=== PATIENT | female | born 1975 | race Caucasian/White ===

== ENCOUNTER 2017-12-21 12:00 | Emergency (ER) | payer OTHER ==
[~2017-12-21] VITALS: Ht 170.2 cm; Wt 51.3 kg
--- OUTSIDE RECORDS SUMMARY | ~2017-12-21 | XMS | Clinical Summary ---
Demographics + + + | Address | [address] | | | [place] [address] | + + + | Home Phone | | + + + | Preferred Language | Unknown | + + + | Marital Status | Single | + + + | Yarsani Affiliation | Unknown | + + + | Race | White | + + + | Ethnic Group | Not or | + + + Author + + + | Author | [facility] | + + + | Organization | [facility] | + + + | Address | Unknown | + + + | Phone | Unavailable | + + + Support + + +---------+ + | Name | Relationship | Address | Phone | + + +---------+ + | ADAM MARIA | ECON | Unknown | | + + +---------+ + Care Team Providers + +------+ + | Care Drilling Machine Operator Name | Role | Phone | + +------+ + PP | Unavailable | + +------+ + Source Comments AELM is fully live on both [facility] Ambulatory and [facility] InPatient.[facility]ly [facility] & [facility] Allergies + + + + + + | Active Allergy | Reactions | Severity | Noted | Comments | | | | | Date | | + + + + + + | Lactose | | Low | 08/30/20 | | | | | | 11 | | + + + + + + Current Medications + + +-------+---------+------+------+-------+ | Prescription | Sig. | Disp. | Refills | Star | End | Statu | | | | | | t | Date | s | | | | | | Date | | | + + +-------+---------+------+------+-------+ | ascorbic acid | Take 500 mg by mouth | | | | | Activ | | (VITAMIN C) 500 mg | once daily. | | | | | e | | Oral Tablet | | | | | | | + + +-------+---------+------+------+-------+ | MULTIVITAMINS WITH | Take 1 Tab by mouth | | | | | Activ | | FLUORIDE | once daily. | | | | | e | | (MULTI-VITAMIN ORAL) | | | | | | | + + +-------+---------+------+------+-------+ | OMEPRAZOLE | Take by mouth once | | | | | Activ | | MAGNESIUM (PRILOSEC | daily. | | | | | e | | OTC ORAL) | | | | | | | + + +-------+---------+------+------+-------+ | POLYETHYLENE | Take by mouth as | | | | | Activ | | GLYCOL 3350 (MIRALAX | needed. | | | | | e | | ORAL) | | | | | | | + + +-------+---------+------+------+-------+ Active Problems Not on file Social History + +-------+ +--------+------+ | Tobacco Use | Types | Packs/Day | Years | Date | | | | | Used | | + +-------+ +--------+------+ | Former Smoker | | | 2 | | + +-------+ +--------+------+ + + +---------+ + | Alcohol Use | Drinks/We | oz/Week | Comments | | | ek | | | + + +---------+ + | No | | | | + + +---------+ + + + + | Sex Assigned at | Date Recorded | | | | + + + | Not on file | | + + + Last Filed Vital Signs + + + + | Vital Sign | Reading | Time Taken | + + + + | Blood Pressure | 103/53 | 04/23/2013 1:38 PM PDT | + + + + | Pulse | 81 | 04/23/2013 1:38 PM PDT | + + + + | Temperature | 36.9 C (98.4 F) | 04/23/2013 1:38 PM PDT | + + + + | Respiratory Rate | 16 | 04/23/2013 1:38 PM PDT | + + + + | Oxygen Saturation | - | - | + + + + | Inhaled Oxygen | - | - | | Concentration | | | + + + + | Weight | 50 kg (110 lb 3.2 | 04/23/2013 1:38 PM PDT | | | oz) | | + + + + | Height | 171.5 cm (5' 7.5") | 04/23/2013 1:38 PM PDT | + + + + | Body Mass Index | 17.01 | 04/23/2013 1:38 PM PDT | + + + + Plan of Treatment + + + + + | Health Maintenance | Due Date | Last Done | Comments | + + + + + | INFLUENZA VACCINE | | | | | (FLU SHOT) | 7 | | | + + + + + Results Not on filefrom Last 3 Months
[~2017-12-21 12:00] MED LIST: CYCLOBENZAPRINE10 MG PO; DAILY VALUE1 EACH PO; FIORICET 50-301 EACH PO; IBUPROFEN600 MG PO; NORCO 5-325 TA1 EACH PO; VISTARIL25 MG PO; ZOFRAN ODT4 MG PO
[2017-12-21] MEDS ORDERED: ONDANSETRON ODT8 MG PO (18:06)
[2017-12-21] MEDS ORDERED: HYDROXYZINE HCL25 MG PO (18:06)
[2018-02-12] MEDS ORDERED: FOLIC ACID1 MG PO (11:16)
[2018-02-12] MEDS ORDERED: MULTIVITAMINS1 EAC8 PO (11:16)
[2018-02-12] MEDS ORDERED: VITAMIN D-32000 UNI1 PO (11:16)
[2018-02-12] MEDS ORDERED: VITAMIN C1000 MG PO (11:17)
== END 2017-12-21 19:20 | disposition home or self-care (01) ==
LOC: ED 12:00
DX: F41.9 Anxiety disorder, unspecified (principal); F17.200 Nicotine dependence, unspecified, uncomplicated
CPT/HCPCS: 80053; 81001; 83690; 84703; 85025; 96374; 99284; J2405; J7030; Q0177

== ENCOUNTER 2018-02-13 06:25 | Day surgery (SDC) | payer OTHER ==
[~2018-02-13] VITALS: Ht 170.2 cm; Wt 51.3 kg
[~2018-02-13 06:25] MED LIST changes: +FOLIC ACID1 MG PO; +HYDROXYZINE HCL25 MG PO; +MULTIVITAMINS1 EAC8 PO; +ONDANSETRON ODT8 MG PO; +VITAMIN C1000 MG PO; +VITAMIN D-32000 UNI1 PO
--- NOTE | 2018-02-13 09:35 | NUR ---
PT RESTING IN BED, INVITED ME IN. SHE IS ALERT AND ORIENTED. SHE SEEMED PLEASANT, AND EXPRESSED SEVERAL TIMES HER DESIRE TO HAVE THE SCREWS IN HER FINGER REMOVED. APPARENTLY THEY HAVE BEEN CAUSING HER QUITE A BIT OF PAIN AND DISCOMFORT. SHE SEEMED PREPARED, HAD FEW QUESTIONS. STAFF IS TO CALL [facility] FOR PT WHEN SHE IS DC'D. EXTENDED A BLESSING, WILL FOLLOW NEEDED
--- NOTE | 2018-02-13 10:11 | NUR ---
02/13/18 Mayank1 Isis Bettencourt 1002-PATIENT ARRIVED TO PACU AWAKE ON RA O2 SAT 100% DENIES PAIN OR NAUSEA. DRESSING TO LEFT RING FINGER CDI. GLUCOSE CHECKED IN OR 103. RR EVEN. SR. 1010-PATIENT AWAKE DENIES PAIN OR NAUSEA. NUMBNESS TO LEFT FINGER.
[2018-02-13] MEDS ORDERED: ULTRAM50 MG PO (10:30)
--- NOTE | 2018-02-15 08:48 | OR ---
[facility] [address], [place] [address] Signed DATE OF OPERATION: 02/13/2018 SURGEON: Keith Arevalo MD PREOPERATIVE DIAGNOSIS: Painful hardware, left ring finger. POSTOPERATIVE DIAGNOSIS: Painful hardware, left ring finger. PROCEDURE: Removal hardware left ring finger. ANESTHESIA: MAC via one screw that was removed from the screw head that was loose, was packaged and given to the patient per her request. WHAT WAS DONE: The patient was taken to the operating room. After anesthesia was induced and airway secured, the patient was positioned, prepped and draped in a routine sterile fashion. The hand was exsanguinated with an Esmarch bandage that we left wrapped around the wrist. Using her old scar as a guide, a mid medial incision was made on the radial aspect of the ring finger. Skin was divided sharply. Subcutaneous tissue was bluntly spread. Actually, able to identify the screws fluoroscopically and therefore dissected right down to the screw heads. The larger screw was removed in toto without any difficulty. The smaller screw once we cleaned out the screw heads and attempted to engage the screw hi lo driver became apparent that the screw head had long since fractured off the stem and it was removed. There was no residual screw outside the bone, so we therefore did not make any effort to excavate the remaining screw shaft from the bone. The wound was gently irrigated, closed in standard fashion, and a sterile dressing applied. The patient was awakened and taken to the recovery room, where she arrived in stable condition. Counts were correct and antibiotic protocols were followed. Keith Arevalo MD WFB/MODL Electronically Signed By: KEITH AREVALO MD 02/15/18 0848 PATIENT NAME: NERISSA MARIA OPERATIVE REPORT DATE OF : 75 REPORT #: [id number] PHYSICIAN: KEITH AREVALO MD PCP: RAMONITA MAK DO REPORT IS CONFIDENTIAL AND NOT TO BE RELEASED WITHOUT AUTHORIZATION [address] [place] [address] Signed /[id number] Copies: ~ Electronically Signed By: KEITH AREVALO MD 02/15/18 0848 PATIENT NAME: NERISSA MARIA OPERATIVE REPORT DATE OF : 75 REPORT #: [id number] PHYSICIAN: KEITH AREVALO MD PCP: RAMONITA MAK DO REPORT IS CONFIDENTIAL AND NOT TO BE RELEASED WITHOUT AUTHORIZATION
== END 2018-02-13 11:05 | disposition home or self-care (01) ==
LOC: OPS 06:25 → DS 06:25 → OPS 08:20 → DS 09:30 → OPS 11:05
PROVIDERS: Orthopaedic Surgery
PROC: 0PPT04Z Removal of Internal Fixation Device from Right Finger Phalanx, Open Approach (ICD-10-PCS; principal; 2018-02-13 08:20)
DX: T84.84XA Pain due to internal orthopedic prosthetic devices, implants and grafts, initial encounter (principal); Z79.899 Other long term (current) drug therapy
CPT/HCPCS: 01820; 76000; J0690; J1885; J2250; J2405; J2704; J7120

== ENCOUNTER 2018-12-16 11:43 | Emergency (ER) | payer OTHER ==
[~2018-12-16] VITALS: Ht 170.2 cm; Wt 49.9 kg
[~2018-12-16 11:43] MED LIST changes: +ULTRAM50 MG PO
--- OUTSIDE RECORDS SUMMARY | 2018-12-16 11:48 | XMS ---
PreManage Notification: NERISSA MARIA Security Paster Hat Lining Events No recent Security Events currently on file CRITERIA MET - Group Notification CARE PROVIDERS DR RAMONITA MAK Primary Care Current PHONE: [phone] Kenneth has no Care Guidelines for this patient. EKirk VISIT COUNT (12 MO.) 2 JUANITA Moraes TOTAL 2 NOTE: Visits indicate total known visits. ED/UCC VISIT TRACKING (12 MO.) 12/16/2018 11:45 JUANITA Solomon [place] TYPE: Emergency COMPLAINT: - CONTROL PROBLEM 12/21/2017 12:01 JUANITA Solomon [place] TYPE: Emergency COMPLAINT: - VOMITING/NAUSEA/FEELS FUNNY DIAGNOSES: - Nausea with vomiting, unspecified - Anxiety disorder, unspecified - Nicotine dependence, unspecified, uncomplicated INPATIENT VISIT TRACKING (12 MO.) No inpatient visits to display in this time frame [email or web address]
== END 2018-12-16 12:49 | disposition home or self-care (01) ==
LOC: ED 11:43
DX: Z30.431 Encounter for routine checking of intrauterine contraceptive device (principal); F17.200 Nicotine dependence, unspecified, uncomplicated; Z79.899 Other long term (current) drug therapy
CPT/HCPCS: 99283

== ENCOUNTER 2020-04-30 10:01 | Emergency (ER) | payer OTHER ==
[~2020-04-30] VITALS: Ht 170.2 cm; Wt 62.6 kg
--- OUTSIDE RECORDS SUMMARY | ~2020-04-30 | XMS | Encounter Summary ---
Demographics + + + | Address | [address] | | | [place] [address] | + + + | Home Phone | | + + + | Preferred Language | Unknown | + + + | Marital Status | Single | + + + | Uatsdin Affiliation | Unknown | + + + | Race | White | + + + | Ethnic Group | Not or | + + + Author + + + | Author | [facility] | + + + | Organization | [facility] | + + + | Address | Unknown | + + + | Phone | Unavailable | + + + Support + + +---------+ + | Name | Relationship | Address | Phone | + + +---------+ + | [place] | ECON | Unknown | | + + +---------+ + Care Team Providers + +------+ + | Care International Sales Representative Name | Role | Phone | + +------+ + | Petey Navas MD | PCP | | + +------+ + Encounter Details +--------+ + + + + | Date | Type | Department | Care Team | Description | +--------+ + + + + | 02/19/ | Telephone | Digestive Health | J Carlos Lund, | | | 2012 | | [place] at [facility] [address] | [facility] | | | | | [place] | [facility] | | | | | Mailcode: Center | Division [address] | | | | | [facility] and | [facility] | | | | | [facility] [address] | [address] [place] | | | | | [place], [place] | [place] [address] | | | | | [address] | [phone] | | | | | [phone] | | | +--------+ + + + + Social History + +-------+ [...] on file | | + + + + + + + | Job Start Date | Occupation | Industry | + + + + | Not on file | Not on file | Not on file | + + + + + + + + | Travel History | Travel Start | Travel End | + + + + + + | No recent travel history available. | + + documented as of this encounter Plan of Treatment Not on filedocumented as of this encounter Visit Diagnoses Not on filedocumented in this encounter"
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
--- OUTSIDE RECORDS SUMMARY | ~2020-04-30 | XMS | Encounter Summary ---
Demographics + + + | Address | [address] | | | [place] [address] | + + + | Home Phone | | + + + | Preferred Language | Unknown | + + + | Marital Status | Single | + + + | Congregation Affiliation | Unknown | + + + | Race | White | + + + | Ethnic Group | Not or | + + + Author + + + | Author | [facility] | + + + | Organization | [facility] | + + + | Address | Unknown | + + + | Phone | Unavailable | + + + Support + + +---------+ + | Name | Relationship | Address | Phone | + + +---------+ + | [place] | ECON | Unknown | | + + +---------+ + Care Team Providers + +------+ + | Care Order Desk Clerk Name | Role | Phone | + +------+ + | Petey Navas MD | PCP | | + +------+ + Encounter Details +--------+ + + + + | Date | Type | Department | Care Team | Description | +--------+ + + + + | 11/29/ | Telephone | Digestive Health | J Carlos Lund, | | | 2011 | | [place] at [facility] [address] | [facility] | | | | | [address] | [facility] | | | | | Mailcode: Center | [address] | | | | | and | [facility] | | | | | [facility] 2 | [address] [place] | | | | | [place], [place] | [place] [address] | | | | | [address] | [phone] | | | | | [phone] | | | +--------+ + + + [...]
--- OUTSIDE RECORDS SUMMARY | ~2020-04-30 | XMS | Encounter Summary ---
Demographics + + + | Address | [address] | | | [place] [address] | + + + | Home Phone | | + + + | Preferred Language | Unknown | + + + | Marital Status | Single | + + + | Caodaism Affiliation | Unknown | + + + | Race | White | + + + | Ethnic Group | Not or | + + + Author + + + | Author | [facility] | + + + | Organization | [facility] | + + + | Address | Unknown | + + + | Phone | Unavailable | + + + Support + + +---------+ + | Name | Relationship | Address | Phone | + + +---------+ + | Art [place] | ECON | Unknown | | + + +---------+ + Care Team Providers + +------+ + | Care Tangled Yarn Spool Straightener Name | Role | Phone | + +------+ + | Petey Navas MD | PCP | | + +------+ + Encounter Details +--------+ + + + + | Date | Type | Department | Care Team | Description | +--------+ + + + + | 02/05/ | Abstract | Digestive Health | J Carlos Lund, | | | 2011 | | [place] at [facility] [address] | [facility] | | | | | Kory Ludwig [facility] | | | | | Mailcode: Center | [place] [address] | | | | | [facility] and | [facility] | | | | | [facility] 2 | [address] [place] | | | | | [place], [place] | [place] [address] | | | | | [address] | [phone] | | | | | [phone] | | | +--------+ + + + [...]
--- OUTSIDE RECORDS SUMMARY | ~2020-04-30 | XMS | Clinical Summary ---
Demographics + + + | Address | [address] | | | [place] [address] | + + + | Home Phone | | + + + | Preferred Language | Unknown | + + + | Marital Status | Single | + + + | Jew Affiliation | Unknown | + + + | Race | White | + + + | Ethnic Group | Not or | + + + Author + + + | Author | [facility] | + + + | Organization | [facility] | + + + | Address | Unknown | + + + | Phone | Unavailable | + + + Support + + +---------+ + | Name | Relationship | Address | Phone | + + +---------+ + | Art [place] | ECON | Unknown | | + + +---------+ + Care Team Providers + +------+ + | Care Pug Machine Operator Name | Role | Phone | + +------+ + PCP | Unavailable | + +------+ + Source Comments ALEM is fully live on both [facility] Ambulatory and [facility] InPatient.[facility] Allergies + + + + [...] recent travel history available. | + + Last Filed Vital Signs + [...] + + Plan of Treatment + + + + + | Health Maintenance | Due Date | Last Done | Comments | + + + + + | Influenza (Flu) | | | | | vaccination (#1) | 9 | | | + + + + + | Pneumococcal | Aged Out | | No longer eligible | | vaccination | | | based on patient's | | | | | age to complete this | | | | | topic | + + + + + Results Not on filefrom Last 3 Months
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
--- OUTSIDE RECORDS SUMMARY | ~2020-04-30 | XMS | Encounter Summary ---
Demographics + + + | Address | [address] | | | [place] [address] | + + + | Home Phone | | + + + | Preferred Language | Unknown | + + + | Marital Status | Single | + + + | Confucianism Affiliation | Unknown | + + + | Race | White | + + + | Ethnic Group | Not or | + + + Author + + + | Author | [facility] | + + + | Organization | [facility] | + + + | Address | Unknown | + + + | Phone | Unavailable | + + + Support + + +---------+ + | Name | Relationship | Address | Phone | + + +---------+ + | [place] | ECON | Unknown | | + + +---------+ + Care Team Providers + +------+ + | Care Metal Welder Name | Role | Phone | + [...] | Toxicology [address] | MD [address] | | | | | [address] | [address] | | | | | [place], [place] | [place], [place] | | | | | [address] | [address] | | | | | | [phone] | | | | | | | [...] Petey Navas, a family medicine doctor in [place], who performed an EGD and colonoscopy (see below). She is concerned about several particular chemicals because they are available at the rust urant: Clicksan disinfectant clickwas pot and harmon detergent Instant solutions multi-surface adn optical glass etcher urnex urn and thomas stove cleaner Summary of prior medical records (reviewed today): - Seen by Family Practice Dr. 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 Nicolas Kraus MD Medical Asset Liability Analyst Cafeteria Helper, [facility] Deicer Kit Assembler, Emergency Medicine documented in thi s encounter Plan of Treatment Not on filedocumented as of this encounter Visit Diagnoses Not on filedocumented in this encounter
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
--- OUTSIDE RECORDS SUMMARY | ~2020-04-30 | XMS | Encounter Summary ---
Demographics + + + | Address | [address] | | | [place] [address] | + + + | Home Phone | | + + + | Preferred Language | Unknown | + + + | Marital Status | Single | + + + | Catholic Affiliation | Unknown | + + + [...] Team Providers + +------+ + | Care Assignment Manager Name | Role | Phone | + +------+ + | Petey Navas MD | PCP | | + +------+ + Encounter Details +--------+ + + + + | Date | Type | Department | Care Team | Description | +--------+ + + + + | 02/19/ | Telephone | Digestive Health | J Carlos Lund, | | | 2012 | | [place] at [facility] 3485 | [facility] | | | | | Kory Ludwig | [facility] | | | | | Mailcode: Center | Division 1508 | | | | | [facility] and | [facility] | | | | | [facility] 2 | [address] [place] | | | | | [place], [place] | [place] [address] | | | | | [address] | [phone] | | | | | [phone] | | | +--------+ + + + [...]
--- OUTSIDE RECORDS SUMMARY | ~2020-04-30 | XMS | Clinical Summary ---
Demographics + + + | Address | [address] | | | [place] [address] | + + + | Home Phone | | + + + | Preferred Language | Unknown | + + + | Marital Status | Single | + + + | Methodist Affiliation | Unknown | + + + | Race | White | + + + | Ethnic Group | Not or | + + + Author + + + | Author | [facility] | + + + | Organization | [facility] | + + + | Address | Unknown | + + + | Phone | Unavailable | + + + Support + + +---------+ + | Name | Relationship | Address | Phone | + + +---------+ + | [place] | ECON | Unknown | | + + +---------+ + Care Team Providers + +------+ + | Care Settlement Agent Name | Role | Phone | + +------+ + PCP | Unavailable | + +------+ + Source Comments ALEM is fully live on both [facility] Ambulatory and [facility] InPatient.[facility] Allergies + + [...]
--- OUTSIDE RECORDS SUMMARY | ~2020-04-30 | XMS | Encounter Summary ---
Demographics + + + | Address | [address] | | | [place] [address] | + + + | Home Phone | | + + + | Preferred Language | Unknown | + + + | Marital Status | Single | + + + | Scientology Affiliation | Unknown | + + + [...] Team Providers + +------+ + | Care Supervisory Training Specialist Name | Role | Phone | + +------+ + | Petey Navas MD | PCP | | + +------+ + Encounter Details +--------+ + + + + | Date | Type | Department | Care Team | Description | +--------+ + + + + | 11/29/ | Telephone | Digestive Health | J Carlos Lund, | | | 2011 | | [place] at [facility] 3485 | [facility] | | | | | Kory Ludwig | [facility] | | | | | Mailcode: Center | Division 1508 | | | | | [facility] and | [facility] | | | | | [facility] 2 | [address] [place] | | | | | [place], [place] | [place] [address] | | | | | [address] | [phone] | | | | | [phone] | | | +--------+ + + + [...]
--- OUTSIDE RECORDS SUMMARY | ~2020-04-30 | XMS | Encounter Summary ---
Demographics + + + | Address | [address] | | | [place] [address] | + + + | Home Phone | | + + + | Preferred Language | Unknown | + + + | Marital Status | Single | + + + | Hinduism Affiliation | Unknown | + + + | Race | White | + + + | Ethnic Group | Not or | + + + Author + + + | Author | [facility] | + + + | Organization | [facility] | + + + | Address | Unknown | + + + | Phone | Unavailable | + + + Support + + +---------+ + | Name | Relationship | Address | Phone | + + +---------+ + | [place] | ECON | Unknown | | + + +---------+ + Care Team Providers + +------+ + | Care Rn Hemodialysis Name | Role | Phone | + +------+ + | Petey Navas MD | PCP | | + +------+ + Encounter Details +--------+ + + + + | Date | Type | Department | Care Team | Description | +--------+ + + + + | 02/05/ | Abstract | Digestive Health | J Carlos Lund, | | | 2011 | | [place] at [facility] 3485 | [facility] | | | | | Kory Ludwig [facility] | | | | | Mailcode: Center | [place] [address] | | | | | [facility] and | [facility] | | | | | [facility] 2 | [address] [place] | | | | | [place], [place] | [place] [address] | | | | | [address] | [phone] | | | | | [phone] | | | +--------+ + + + [...]
--- OUTSIDE RECORDS SUMMARY | 2020-04-30 10:04 | XMS ---
PreManage Notification: NERISSA MARIA Security Strategic Procurement Manager Events No recent Security Events currently on file CRITERIA MET - Group Notification CARE PROVIDERS There are no care providers on record at this time. Kenneth has no Care Guidelines for this patient. Rambo VISIT COUNT (12 MO.) 1 JUANITA Moraes TOTAL 1 NOTE: Visits indicate total known visits. ED/UCC VISIT TRACKING (12 MO.) 04/30/2020 10:02 JUANITA Solomon [place] TYPE: Emergency COMPLAINT: - MEDICAL CLEARANCE INPATIENT VISIT TRACKING (12 MO.) No inpatient visits to display in this time frame [email or web address]
[2020-04-30] MEDS ORDERED: DIPHENHYDRAMINE25 M2 PO (10:28)
[2020-04-30] MEDS ORDERED: BENZTROPINE MESY1 MG PO (10:28)
[2020-04-30] MEDS ORDERED: OLANZAPINE10 MG PO (10:29)
[2020-04-30] MEDS ORDERED: LORATADINE10 MG PO (10:29)
== END 2020-05-01 16:59 ==
LOC: ED 10:01
DX: R45.851 Suicidal ideations (principal); R45.850 Homicidal ideations; F20.9 Schizophrenia, unspecified; Z87.891 Personal history of nicotine dependence; Z79.899 Other long term (current) drug therapy
CPT/HCPCS: 80053; 80176; 81001; 84443; 84703; 85025; 99284; C9803; G0480; U0002

== ENCOUNTER 2020-07-16 08:02 | Emergency (ER) | payer OTHER ==
[~2020-07-16] VITALS: Ht 170.2 cm; Wt 62.6 kg
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
--- OUTSIDE RECORDS SUMMARY | ~2020-07-16 | XMS | Encounter Summary ---
Demographics + + + | Address | [address] | | | [place] [address] | + + + | Home Phone | | + + + | Preferred Language | Unknown | + + + | Marital Status | Single | + + + | Cheondoism Affiliation | Unknown | + + + | Race | White | + + + | Ethnic Group | Not or | + + + Author + + + | Author | [facility] | + + + | Organization | [facility] | + + + | Address | Unknown | + + + | Phone | Unavailable | + + + Support + + +---------+ + | Name | Relationship | Address | Phone | + + +---------+ + | [place] | ECON | Unknown | | + + +---------+ + Care Team Providers + +------+ + | Care Dictating Transcribing Machine Servicer Name | Role | Phone | + +------+ + | Petey Navas MD | PCP | | + +------+ + Encounter Details +--------+ + + + + | Date | Type | Department | Care Team | Description | +--------+ + + + + | 02/19/ | Telephone | Digestive Health | J Carlos Lund, | | | 2012 | | [place] [address] [address] | [facility] | | | | | [address] [place] | [facility] | | | | | [facility] and | [place] [address] | | | | | [place] [address] | [facility] | | | | | [place], [place] | [address] [place] | | | | | [address] | [place] [address] | | | | | [phone] | [phone] | | | | | | | | +--------+ + + + [...] + + documented as of this encounter Miscellaneous Notes Telephone Encounter - Tracy Bonilla MA - 02/20/2013 3:38 PM PDTRECOMMENDATIONS: 1. miralax to help soften stool - [...] a follow-up visit. Return to clinic PRN. Please call pt to schedule a clinic appt, will discuss scoping at that time. elephone Encounter - Tracy Bonilla MA - 02/19/2013 4:59 PM PDTThere is no note about a procedure being needed. Have not seen pt since 2010. elephon e Encounter - Win Sandhu CMA - 02/19/2013 3:28 PM PDTPt lv 02/19 @ 9:41AM Pt states she is calling to make appt for stomach scope/ office visit. Please call TEL [phone] 3 :29 PM PDTdocumented in this encounter Plan of Treatment Not on filedocumented as of this encounter Visit Diagnoses Not on filedocumented in this encounter"
--- OUTSIDE RECORDS SUMMARY | ~2020-07-16 | XMS | Clinical Summary ---
Demographics + + + | Address | [address] | | | [place] [address] | + + + | Home Phone | | + + + | Preferred Language | Unknown | + + + | Marital Status | Single | + + + | Mandaeism Affiliation | Unknown | + + + | Race | White | + + + | Ethnic Group | Not or | + + + Author + + + | Author | [facility] | + + + | Organization | [facility] | + + + | Address | Unknown | + + + | Phone | Unavailable | + + + Support + + +---------+ + | Name | Relationship | Address | Phone | + + +---------+ + | [place] | ECON | Unknown | | + + +---------+ + Care Team Providers + +------+ + | Care Sample Wrapper Name | Role | Phone | + +------+ + PCP | Unavailable | + +------+ + Source Comments ALEM is fully live on both [facility] Ambulatory and [facility] InPatient.[facility] Allergies + + + + + + | Active Allergy | Reactions | Severity | Noted | Comments | | | | | Date | | + + + + + + | Lactose | | Low | 08/30/20 | | | | | | 11 | | + + + + + + Medications + + + +---------+------+------+-------+ | Medication | Sig | Dispensed | Refills | Star | End | Statu | | | | | | t | Date | s | | | | | | Date | | | + + + +---------+------+------+-------+ | ascorbic acid | Take 500 mg by mouth | | 0 | | | Activ | | (VITAMIN C) 500 mg | once daily. | | | | | e | | Oral Tablet | | | | | | | + + + +---------+------+------+-------+ | MULTIVITAMINS WITH | Take 1 Tab by mouth | | 0 | | | Activ | | FLUORIDE | once daily. | | | | | e | | (MULTI-VITAMIN ORAL) | | | | | | | + + + +---------+------+------+-------+ | OMEPRAZOLE | Take by mouth once | | 0 | | | Activ | | MAGNESIUM (PRILOSEC | daily. | | | | | e | | OTC ORAL) | | | | | | | + + + +---------+------+------+-------+ | POLYETHYLENE | Take by mouth as | | 0 | | | Activ | | GLYCOL 3350 (MIRALAX | needed. | | | | | e | | ORAL) | | | | | | | + + + +---------+------+------+-------+ Active Problems Not on file Social History + +-------+ +--------+------+ | Tobacco [...] on file | | + + + Last Filed Vital Signs + + + + + | Vital Sign | Reading | Time Taken | Comments | + + + + + | Blood Pressure | 103/53 | 04/23/2013 1:38 PM | | | | | PDT | | + + + + + | Pulse | 81 | 04/23/2013 1:38 PM | | | | | PDT | | + + + + + | Temperature | 36.9 C (98.4 F) | 04/23/2013 1:38 PM | | | | | PDT | | + + + + + | Respiratory Rate | 16 | 04/23/2013 1:38 PM | | | | | PDT | | + + + + + | Oxygen Saturation | - | - | | + + + + + | Inhaled Oxygen | - | - | | | Concentration | | | | + + + + + | Weight | 50 kg (110 lb 3.2 | 04/23/2013 1:38 PM | | | | oz) | PDT | | + + + + + | Height | 171.5 cm (5' 7.5") | 04/23/2013 1:38 PM | | | | | PDT | | + + + + + | Body Mass Index | 17.01 | 04/23/2013 1:38 PM | | | | | PDT | | + + + + + Plan of Treatment + + +-------+ + | Health Maintenance | Due Date | Last | Comments | | | | Done | | + + +-------+ + | Influenza (Flu) | | | | | vaccination (#1) | 0 | | | + + +-------+ + | Pneumococcal | Aged Out | | No longer eligible based on patient's age | | vaccination | | | to complete this topic | + + +-------+ + Results Not on filefrom Last 3 Months
--- OUTSIDE RECORDS SUMMARY | ~2020-07-16 | XMS | Encounter Summary ---
Demographics + + + | Address | [address] | | | [place] [address] | + + + | Home Phone | | + + + | Preferred Language | Unknown | + + + | Marital Status | Single | + + + | Pentecostal Affiliation | Unknown | + + + | Race | White | + + + | Ethnic Group | Not or | + + + Author + + + | Author | [facility] | + + + | Organization | [facility] | + + + | Address | Unknown | + + + | Phone | Unavailable | + + + Support + + +---------+ + | Name | Relationship | Address | Phone | + + +---------+ + | [place] | ECON | Unknown | | + + +---------+ + Care Team Providers + +------+ + | Care Video Producer Name | Role | Phone | + [...] | Toxicology [address] | MD [address] | | | | | [address] | [address] | | | | | [place], [place] | [place], [place] | | | | | [address] | [address] | | | | | | [phone] | | | | | | | [...] Petey Navas, a family medicine doctor in [place], who performed an EGD and colonoscopy (see below). She is concerned about several particular chemicals because they are available at the [facility] urant: Clicksan disinfectant clickwas pot and harmon detergent Instant solutions multi-surface adn glazier structural glass urnex urn and thomas stock sheets cleaner inspector Summary of prior medical records (reviewed today): - Seen by Family Practice Dr. 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 Nicolas Kraus MD Medical Gravure Press Operator Manager Body, [facility] Account General Manager, Emergency Medicine documented in thi s encounter Plan of Treatment Not on filedocumented as of this encounter Visit Diagnoses Not on filedocumented in this encounter
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
--- OUTSIDE RECORDS SUMMARY | ~2020-07-16 | XMS | Encounter Summary ---
Demographics + + + | Address | [address] | | | [place] [address] | + + + | Home Phone | | + + + | Preferred Language | Unknown | + + + | Marital Status | Single | + + + | Orthodox Affiliation | Unknown | + + + [...] Team Providers + +------+ + | Care Training And Development Professional Name | Role | Phone | + +------+ + | Petey Navas MD | PCP | | + +------+ + Encounter Details +--------+ + + + + | Date | Type | Department | Care Team | Description | +--------+ + + + + | 11/29/ | Telephone | Digestive Health | J Carlos Lund, | | | 2011 | | [place] [address] | [facility] | | | | | Kory Ludwig [place] | [facility] | | | | | [facility] and | [place] [address] | | | | | [place] [address] | [facility] | | | | | [place], [place] | [address] [place] | | | | | [address] | [place] [address] | | | | | [phone] | [phone] | | | | | | | [...]
--- OUTSIDE RECORDS SUMMARY | ~2020-07-16 | XMS | Encounter Summary ---
Demographics + + + | Address | [address] | | | [place] [address] | + + + | Home Phone | | + + + | Preferred Language | Unknown | + + + | Marital Status | Single | + + + | Bahai Affiliation | Unknown | + + + | Race | White | + + + | Ethnic Group | Not or | + + + Author + + + | Author | [facility] | + + + | Organization | [facility] | + + + | Address | Unknown | + + + | Phone | Unavailable | + + + Support + + +---------+ + | Name | Relationship | Address | Phone | + + +---------+ + | [place] | ECON | Unknown | | + + +---------+ + Care Team Providers + +------+ + | Care Bookkeeper Assistant Name | Role | Phone | + +------+ + | Petey Navas MD | PCP | | + +------+ + Encounter Details +--------+ + + + + | Date | Type | Department | Care Team | Description | +--------+ + + + + | 02/05/ | Abstract | Digestive Health | J Carlos Lund, | | | 2011 | | [place] [address] | [facility] | | | | | Kory Nichols rahul [place] | [facility] | | | | | [facility] and | [place] [address] | | | | | [facility], [place] [address] | [facility] | | | | | [place], [place] | [address] [place] | | | | | [address] | [place] [address] | | | | | [phone] | [phone] | | | | | | | [...]
[~2020-07-16 08:02] MED LIST changes: +BENZTROPINE MESY1 MG PO; +DIPHENHYDRAMINE25 M2 PO; +LORATADINE10 MG PO; +OLANZAPINE10 MG PO
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
[2020-07-16] MEDS ORDERED: ONDANSETRON ODT8 MG PO (09:59)
--- NOTE | 2020-07-17 20:15 | PATH ---
[facility] [address], [place] [address] Signed ORDERING PHYSICIAN: Keith Rome MD PATIENT NAME: NERISSA MARIA GENDER: F : 1975 SPECIMEN(S): MOLECULAR PATHOLOGY RESULTS: SARS-CoV-2 Not Detected ADDITIONAL NOTES.: The Aguilar Fusion SARS-CoV-2 Assay is a multiplex real-time PCR (RT-PCR) in vitro diagnostic test intended for the qualitative detection of RNA from SARS-CoV-2 from individuals who meet COVID-19 clinical and/or epidemiological criteria. In general, SARS-CoV-2 RNA can be detected during the acute phase of infection. Positive results indicate the presence of SARS-CoV-2 RNA. Clinical correlation with patient history and other diagnostic information is necessary to determine patient infection status. Positive results do not rule out bacterial infection or co-infection with other viruses. Negative results do not preclude SARS-CoV-2 infection and should not be used as the sole basis for patient management decisions. Negative results must be combined with other clinical observations, patient history, and epidemiological information. The Aguilar Fusion SARS-CoV-2 Assay is not yet approved or cleared by the [place] FDA. When there are no FDA-approved or cleared tests available, and other criteria are met, FDA can make tests available under an emergency access mechanism called an Emergency Use Authorization (EUA). The EUA for this test is supported by the Hospital Coordinator of Health and Human Service's (HHS's) declaration that circumstances exist to justify the emergency use of in vitro diagnostics for the detection and/or diagnosis of the virus that causes COVID-19. This EUA will remain in effect for the duration of the COVID-19 declaration justifying emergency of IVDs, unless it is terminated or revoked by FDA, after which the test may no longer be used. The Aguilar Fusion SARS-CoV-2 Assay is for use only under EUA in US laboratories certified under the Clinical Laboratory Improvement Amendments of 1988 (CLIA) to perform high complexity tests. [facility] is certified under CLIA to perform high complexity PATIENT NAME: NERISSA MARIA PATHOLOGY DATE OF : 75 REPORT #: [id number] PHYSICIAN: NANDO LIVINGSTON PCP: RAMONITA MAK DO REPORT IS CONFIDENTIAL AND NOT TO BE RELEASED WITHOUT AUTHORIZATION [address] [address] Signed clinical laboratory testing. PERFORMING LABORATORY.: Molecular testing was performed by [facility] [place] [address] (Analytics Consultant: John London D.O.; CLIA#: [id number]) Diagnostician: System Interface Pathologist Electronically Signed 07/17/2020 Copies: ~ PATIENT NAME: NERISSA MARIA PATHOLOGY DATE OF : 75 REPORT #: [id number] PHYSICIAN: NANDO LIVINGSTON PCP: RAMONITA MAK DO REPORT IS CONFIDENTIAL AND NOT TO BE RELEASED WITHOUT AUTHORIZATION
== END 2020-07-16 10:15 | disposition home or self-care (01) ==
LOC: ED 08:02
DX: B34.9 Viral infection, unspecified (principal); Z20.828 Contact with and (suspected) exposure to other viral communicable diseases; Z87.891 Personal history of nicotine dependence; Z79.899 Other long term (current) drug therapy
CPT/HCPCS: 71045; 80053; 85025; 96361; 96374; 99284-25; C9803; J2405; J7030

== ENCOUNTER 2020-07-23 11:29 | Emergency (ER) | payer OTHER ==
[~2020-07-23] VITALS: Ht 170.2 cm; Wt 62.6 kg
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
--- OUTSIDE RECORDS SUMMARY | ~2020-07-23 | XMS | Encounter Summary ---
Demographics + + + | Address | [address] | | | [place] [address] | + + + | Home Phone [...] Author + + + | Author | [facility] | + + + | Organization | [facility] | + + + | Address | Unknown | + + + | Phone | Unavailable | + + + Support + + +---------+ + | Name | Relationship | Address | Phone | + + +---------+ + | [place] | ECON | Unknown | | + + +---------+ + Care Team Providers + +------+ + | Care Academic Assistant Name | Role | Phone | + [...] | Toxicology [address] | MD [address] | | | | | [address] | [address] | | | | | [place], [place] | [place], [place] | | | | | [address] | [address] | | | | | | [phone] | | | | | | | [...] MD - 02/13/2013 12:04 PM PDTOutpatient Consultation: Dago dupree Chief Complaint: Concerned that she has been [...] Petey Navas, a family medicine doctor in [place], who performed an EGD and colonoscopy (see below). She is concerned about several particular chemicals because they are available at the [facility] urant: Clicksan disinfectant clickwas pot and harmon detergent Instant solutions multi-surface adn boulevard glassware replacer urnex urn and thomas cutch cleaner Summary of prior medical records (reviewed today): - Seen by Family Practice Dr. 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 Nicolas Kraus MD Medical Networking Engineer Manufacturing Maintenance Mechanic, [facility] Robot Programmer, Emergency Medicine documented in thi s encounter Plan of Treatment Not on filedocumented as of this encounter Visit Diagnoses Not on filedocumented in this encounter
--- OUTSIDE RECORDS SUMMARY | ~2020-07-23 | XMS | Clinical Summary ---
Demographics + + + | Address | [address] | | | [place] [address] | + + + | Home Phone | | + + + | Preferred Language | Unknown | + + + | Marital Status | Single | + + + | Restorationist Affiliation | Unknown | + + + | Race | White | + + + | Ethnic Group | Not or | + + + Author + + + | Author | [facility] | + + + | Organization | [facility] | + + + | Address | Unknown | + + + | Phone | Unavailable | + + + Support + + +---------+ + | Name | Relationship | Address | Phone | + + +---------+ + | [place] | ECON | Unknown | | + + +---------+ + Care Team Providers + +------+ + | Care Visual Merchandise Manager Name | Role | Phone | + +------+ + PCP | Unavailable | + +------+ + Source Comments ALEM is fully live on both [facility] Ambulatory and [facility] InPatient.[facility] Allergies + + + + + [...]
--- OUTSIDE RECORDS SUMMARY | ~2020-07-23 | XMS | Encounter Summary ---
Demographics + + + | Address | [address] | | | [place] [address] | + + + | Home Phone | | + + + | Preferred Language | Unknown | + + + | Marital Status | Single | + + + | Yazidism Affiliation | Unknown | + + + [...] Team Providers + +------+ + | Care Cloth Layer Name | Role | Phone | + +------+ + | Petey Navas MD | PCP | | + +------+ + Encounter Details +--------+ + + + + | Date | Type | Department | Care Team | Description | +--------+ + + + + | 11/29/ | Telephone | Digestive Health | J Carlos Lund, | | | 2011 | | [place] [address] | [facility] | | | | | Kory Ludwig [place] | [facility] | | | | | [facility] and | [place] [address] | | | | | [place] [address] | [facility] | | | | | [place], [place] | [address] [place] | | | | | [address] | [place] [address] | | | | | [phone] | [phone] | | | | | | | [...] this encounter Miscellaneous Notes Telephone Encounter - Alexandria Espinosa RN - 11/29/2011 11:25 AM PSTWill send pt msg to Dr. Amor bustillo. elephone Encounter - Yenni Farr - 11/29/2011 11:09 AM PSTCristin Zepeda calling concerned that her SOCIAL HI STORY state "denies alcohol abuse, though outside records suggest possible past history of p eriods of heavy use" - and the pt is concerned that for future legal purposes she cannot hav e it state she used to be a heavy drinker when the pt denies ever being a drinker. Pt wants to know what outside records were submitted suggesting this. Advised caller that they may no t receive a call back from nurse or provider until the next business day. Caller understand s and is agreeable to this. documented in this encounte r Plan of Treatment Not on filedocumented as of this encounter Visit Diagnoses Not on filedocumented in this encounter
--- OUTSIDE RECORDS SUMMARY | ~2020-07-23 | XMS | Encounter Summary ---
Demographics + + + | Address | [address] | | | [place] [address] | + + + | Home Phone | | + + + | Preferred Language | Unknown | + + + | Marital Status | Single | + + + | Quaker Affiliation | Unknown | + + + | Race | White | + + + | Ethnic Group | Not or | + + + Author + + + | Author | [facility] | + + + | Organization | [facility] | + + + | Address | Unknown | + + + | Phone | Unavailable | + + + Support + + +---------+ + | Name | Relationship | Address | Phone | + + +---------+ + | [place] | ECON | Unknown | | + + +---------+ + Care Team Providers + +------+ + | Care Merchandiser Name | Role | Phone | + +------+ + | Petey Navas MD | PCP | | + +------+ + Encounter Details +--------+ + + + + | Date | Type | Department | Care Team | Description | +--------+ + + + + | 02/19/ | Telephone | Digestive Health | J Carlos Lund, | | | 2012 | | [place] [address] | [facility] | | | | | Kory Ludwig [place] | [facility] | | | | | [facility] and | [place] [address] | | | | | [place] [address] | [facility] | | | | | [place], [place] | [address] [place] | | | | | [address] | [place] [address] | | | | | [phone] | [phone] | | | | | | | [...] stomach scope/ office visit. Please call TEL [phone] 3 :29 PM PDTdocumented in this encounter Plan of Treatment Not on filedocumented as of this encounter Visit Diagnoses Not on filedocumented in this encounter"
--- OUTSIDE RECORDS SUMMARY | ~2020-07-23 | XMS | Encounter Summary ---
Demographics + + + | Address | [address] | | | [place] [address] | + + + | Home Phone [...] Team Providers + +------+ + | Care Director Of Clinical Education Name | Role | Phone | + +------+ + | Petey Navas MD | PCP | | + +------+ + Encounter Details +--------+ + + + + | Date | Type | Department | Care Team | Description | +--------+ + + + + | 02/05/ | Abstract | Digestive Health | J Carlos Lund, | | | 2011 | | [place] [address] | [facility] | | | | | Kory Nichols rahul [place] | [facility] | | | | | [facility] and | [place] [address] | | | | | [facility], [place] [address] | [facility] | | | | | [place], [place] | [address] [place] | | | | | [address] | [place] [address] | | | | | [phone] | [phone] | | | | | | | [...]
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
--- OUTSIDE RECORDS SUMMARY | 2020-07-23 11:32 | XMS ---
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 Care History Medical/Surgical 07/17/2020 [facility] Patient COVID 19 Lab test for - Negative 04/30/2020 [facility] - Patient is currently established with [facility]. If patient is seen in the ED during business hours. Please contact CHWs at [facility]. Care Recommendation: If this patient has had [...] providing care. E.D. VISIT COUNT (12 MO.) [address] [facility] TOTAL 3 NOTE: Visits indicate total known visits. ED/UCC VISIT TRACKING (12 MO.) 07/23/2020 11:30 [facility] [place] TYPE: Emergency COMPLAINT: - MEDICAL CLEARANCE 07/16/2020 08:04 [facility] [place] TYPE: Emergency COMPLAINT: - SOB, FEVER, VOMITING DIAGNOSES: - Other care home (current) drug therapy - Viral infection, unspecified - Personal history of nicotine dependence - Contact with and (suspected) exposure to other viral communic - Cough 04/30/2020 10:02 [facility] [place] TYPE: Emergency COMPLAINT: - MEDICAL CLEARANCE DIAGNOSES: - Personal history of nicotine dependence - Hallucinations, unspecified - Homicidal ideations - Other care home (current) drug therapy - Suicidal ideations - Schizophrenia, unspecified INPATIENT VISIT TRACKING (12 MO.) 05/01/2020 20:00 [facility] [place] TYPE: Psychiatric Services DIAGNOSES: 0. Major [...] neuroleptics, init 2. Gastritis, unspecified, without bleeding [email or web address]
--- NOTE | 2020-07-24 10:11 | EKG ---
[facility] [address] [facility] [place], [place] [address] Signed Normal sinus rhythm Normal ECG No previous ECGs available Confirmed by GEOVANNA BERMUDEZ MD ([id number]) on 07/24/2020 10:11:03 AM Electronically Signed By: GEOVANNA BERMUDEZ MD 07/24/20 1011 PATIENT NAME: NERISSA MARIA Electrocardiogram DATE OF : 75 PHYSICIAN: GEOVANNA BERMUDEZ MD REPORT #: [id number] REPORT IS CONFIDENTIAL AND NOT TO BE RELEASED WITHOUT AUTHORIZATION
--- NOTE | 2020-07-24 13:16 | PATH ---
[facility] [address] [facility] [place], [place] [address] Signed ORDERING PHYSICIAN: Marvin Hobbs MD PATIENT NAME: NERISSA MARIA GENDER: Omer : 1975 SPECIMEN(S): MOLECULAR PATHOLOGY RESULTS: SARS-CoV-2 Not Detected ADDITIONAL NOTES.: The [employer] Fusion SARS-CoV-2 Assay is a multiplex real-time PCR (RT-PCR) in vitro diagnostic test intended for the qualitative detection of RNA from SARS-CoV-2 from individuals who meet COVID-19 clinical and/or epidemiological criteria. In general, SARS-CoV-2 RNA can be detected during the acute phase of infection. Positive results indicate the presence of SARS-CoV-2 RNA. Clinical correlation with patient history and other diagnostic information is necessary to determine patient infection status. Positive results do not rule out bacterial infection or co-infection with other viruses. Negative results do not preclude SARS-CoV-2 infection and should not be used as the sole basis for patient management decisions. Negative results must be combined with other clinical observations, patient history, and epidemiological information. The [employer] Fusion SARS-CoV-2 Assay is not yet approved or cleared by the [place] FDA. When there are no FDA-approved or cleared tests available, and other criteria are met, FDA can make tests available under an emergency access mechanism called an Emergency Use Authorization (EUA). The EUA for this test is supported by the Building Stonecutter of Health and Human Service's (HHS's) declaration that circumstances exist to justify the emergency use of in vitro diagnostics for the detection and/or diagnosis of the virus that causes COVID-19. This EUA will remain in effect for the duration of the COVID-19 declaration justifying emergency of IVDs, unless it is terminated or revoked by FDA, after which the test may no longer be used. The Coats Fusion SARS-CoV-2 Assay is for use only under EUA in US laboratories certified under the Clinical Laboratory Improvement Amendments of 1988 (CLIA) to perform high complexity tests. [facility] is certified under CLIA to perform high complexity PATIENT NAME: NERISSA MARIA PATHOLOGY DATE OF : 75 REPORT #: [id number] PHYSICIAN: NANDO LIVINGSTON PCP: RAMONITA MAK DO REPORT IS CONFIDENTIAL AND NOT TO BE RELEASED WITHOUT AUTHORIZATION [address] [address] Signed clinical laboratory testing. PERFORMING LABORATORY.: Molecular testing was performed by [facility] [address] [place], [place] [address] [address] (Doctor Naturopathic: John London D.O.; CLIA#: [id number]) Diagnostician: System Interface Pathologist Electronically Signed 07/24/2020 Copies: ~ PATIENT NAME: NERISSA MARIA PATHOLOGY DATE OF : [birth year] REPORT #: [id number] PHYSICIAN: NANDO LIVINGSTON PCP: RAMONITA MAK DO REPORT IS CONFIDENTIAL AND NOT TO BE RELEASED WITHOUT AUTHORIZATION
== END 2020-07-24 10:43 | disposition short-term general hospital (02) ==
LOC: ED 11:29
DX: F32.9 Major depressive disorder, single episode, unspecified (principal); K21.9 Gastro-esophageal reflux disease without esophagitis; F17.200 Nicotine dependence, unspecified, uncomplicated; Z79.899 Other long term (current) drug therapy; F20.9 Schizophrenia, unspecified
CPT/HCPCS: 80053; 80176; 81001; 84443; 84703; 85025; 93005; 93010; 99285-25; C9803; G0480

== ENCOUNTER 2021-05-15 15:36 | Emergency (ER) | payer OTHER ==
[~2021-05-15] VITALS: Ht 170.2 cm; Wt 62.6 kg
--- OUTSIDE RECORDS SUMMARY | 2021-05-15 15:46 | XMS ---
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 Care History Medical/Surgical 07/17/2020 [facility] Patient COVID 19 Lab test for - Negative 04/30/2020 [facility] - Patient is currently established with [facility]. If patient is seen in the ED during business hours. Please contact CHWs at [facility]. Care Recommendation: If this patient has [...] care. E.D. VISIT COUNT (12 MO.) [address] [facility]. TOTAL 3 NOTE: Visits indicate total known visits. 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 - Contact with and (suspected) exposure to other viral communicable diseases - Major depressive disorder, single episode, unspecified - Schizophrenia, unspecified - Major depressive disorder, single episode, unspecified - Nicotine dependence, unspecified, uncomplicated - Gastro-esophageal reflux disease without esophagitis 07/16/2020 08:04 [facility] [place] TYPE: Emergency COMPLAINT: - SOB, FEVER, VOMITING DIAGNOSES: - 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
[2021-05-15] MEDS ORDERED: RISPERIDONE1 MG PO (15:48)
[2021-05-15] MEDS ORDERED: ESCITALOPRAM OX10 MG PO (15:48)
== END 2021-05-15 17:38 | disposition home or self-care (01) ==
LOC: ED 15:36
DX: R42 Dizziness and giddiness (principal); R11.2 Nausea with vomiting, unspecified; R51.9 Headache, unspecified; F17.200 Nicotine dependence, unspecified, uncomplicated; Z79.899 Other long term (current) drug therapy; Z20.822 Contact with and (suspected) exposure to COVID-19
CPT/HCPCS: 70450; 99284-25; C9803; U0003

== ENCOUNTER 2021-07-14 10:12 | Emergency (ER) | payer OTHER ==
[~2021-07-14] VITALS: Ht 170.2 cm; Wt 63.0 kg
[~2021-07-14 10:12] MED LIST changes: +ESCITALOPRAM OX10 MG PO; +RISPERIDONE1 MG PO
--- OUTSIDE RECORDS SUMMARY | 2021-07-14 10:20 | XMS ---
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 Care History Medical/Surgical 07/17/2020 [facility] Patient COVID 19 Lab test for - Negative 04/30/2020 [facility] - Patient is currently established with [facility]. If patient is seen in the ED during business hours. Please contact CHWs at [facility]. Care Recommendation: If this patient has [...] providing care. E.D. VISIT COUNT (12 MO.) 4 [facility] TOTAL 4 NOTE: Visits indicate total known visits. 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 - Contact with and (suspected) exposure to other viral communicable diseases - Major depressive disorder, single episode, unspecified - Schizophrenia, unspecified - Major depressive disorder, single episode, unspecified - Nicotine dependence, unspecified, uncomplicated - Gastro-esophageal reflux disease without esophagitis 07/16/2020 08:04 [facility] [place] TYPE: Emergency COMPLAINT: - SOB, FEVER, VOMITING DIAGNOSES: - 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
--- NOTE | 2021-07-15 21:15 | EKG ---
[facility] [address] [facility] [place], [place] [address] Signed Normal sinus rhythm Normal ECG When compared with ECG of 23-JUL-2020 14:46, No significant change was found Confirmed by YAHIR MONTELONGO MD ([id number]) on 07/15/2021 9:14:57 PM Electronically Signed By: YAHIR MONTELONGO MD 07/15/215 PATIENT NAME: NERISSA MARIA BALTA Electrocardiogram DATE OF : 75 PHYSICIAN: YAHIR MONTELONGO MD REPORT #: [id number] REPORT IS CONFIDENTIAL AND NOT TO BE RELEASED WITHOUT AUTHORIZATION
== END 2021-07-15 09:10 | disposition short-term general hospital (02) ==
LOC: ED 10:12
DX: F32.3 Major depressive disorder, single episode, severe with psychotic features (principal); F17.200 Nicotine dependence, unspecified, uncomplicated; Z79.899 Other long term (current) drug therapy; Z20.822 Contact with and (suspected) exposure to COVID-19
CPT/HCPCS: 80053; 81001; 84443; 84703; 85025; 93005; 93010; 96374; 96375; 99285-25; C9803; G0480; J2060; J2405; J7030; U0003

== ENCOUNTER 2022-07-01 10:52 | Emergency (ER) | payer OTHER ==
[~2022-07-01] VITALS: Ht 170.2 cm; Wt 65.5 kg
--- OUTSIDE RECORDS SUMMARY | 2022-07-01 11:00 | XMS ---
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 Care History Medical/Surgical 07/17/2020 [facility] Patient COVID 19 Lab test for - Negative 04/30/2020 [facility] - Patient is currently established with [facility]. If patient is seen in the ED during business hours. Please contact CHWs at [facility]. Care Recommendation: If this patient has had [...] care. E.D. VISIT COUNT (12 MO.) 2 [facility]. TOTAL 2 NOTE: Visits indicate total known visits. 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
[2022-07-01] MEDS ORDERED: ONDANSETRON ODT8 MG PO (12:33)
[2022-07-01] MEDS ORDERED: EFFEXOR XR37.5 MG PO (12:33)
== END 2022-07-01 12:47 | disposition home or self-care (01) ==
LOC: ED 10:52
DX: K29.00 Acute gastritis without bleeding (principal); F43.9 Reaction to severe stress, unspecified; F17.200 Nicotine dependence, unspecified, uncomplicated
CPT/HCPCS: 36415; 80053; 83690; 84703; 85025; 96374; 99284-25; J2405; J7030